=== PATIENT | female | born 1965 | race Caucasian/White ===

== ENCOUNTER 2021-08-19 13:31 | Emergency (ER) | payer OTHER ==
[2021-08-19 15:19] LABS: #Eosinphils 0.2 10x3/uL (0.0-0.5); #Monocytes 0.6 10x3/uL (0.0-1.1); #Neutrophils 5.1 10x3/uL (1.5-8.4); %Basophils 0.5 % (0.0-2.0); %Eosinophils 1.9 % (0.0-6.0); %Lymphocytes 23.7 % (18.0-47.0); %Monocytes 7.3 % (0.0-10.0); %Neutrophils 66.3 % (40.0-75.0); Hemoglobin 12.2 g/dL (12.0-15.5); Mean Corpuscular HGB CONC 32.9 g/dL (32.0-36.0); Mean Corpuscular Hemoglobin 30.3 pg (27.0-33.0); Mean Corpuscular Volume 92.1 fl (81.6-98.3); Mean Platelet Volume 11.7 fl (7.4-10.4); Platelet Count 203 10x3/uL (150-450); RBC Distribution Width 12.8 % (11.5-14.5); Red Blood Cell (RBC) Count 4.03 10x6/uL (3.90-5.03); White Blood Cell (WBC) Count 7.7 10x3/uL (3.5-10.5)
[2021-08-19 16:03] LABS: ALT (SGPT) 13 U/L (8-55); AST (SGOT) 19 U/L (5-34); Albumin 4.4 g/dL (3.5-5.0); Alkaline Phosphatase 62 U/L (40-110); Anion Gap 12 mmol/L (10-20); BUN (Urea Nitrogen) 15 mg/dL (9.8-20.1); Bilirubin, Total 0.5 mg/dL (0.2-1.2); Calc. Creatinine Clearance 0 mL/min (70-130); Calcium 9.5 mg/dL (7.8-10.44); Carbon Dioxide 30 mmol/L (22-29); Chloride 103 mmol/L (98-107); Globulin 2.4 g/dL (2.4-3.5); Glucose 77 mg/dL (70-105); Lipase 18 U/L (8-78); Protein, Total 6.8 g/dL (6.0-8.3); Sodium 141 mmol/L (136-145)
== END 2021-08-19 16:48 | disposition home or self-care (01) ==
LOC: CSHERS 13:31
DX: R07.89 Other chest pain (principal)
CPT/HCPCS: 71045; 80053; 83690; 84484; 85025; 93005